=== PATIENT | female | born 1990 | race Caucasian/White ===

== ENCOUNTER 2017-03-14 18:27 | Inpatient (IN) | payer OTHER ==
[~2017-03-14] VITALS: Ht 160 cm; Wt 89.2 kg
--- NOTE | 2017-03-14 19:14 | NUR ---
PT PRESENTS TO THE ED WITH THE COMPLAINT OF BUQ AND RLQ ABDOMINAL PAIN WHICH HAS BEEN CRAMP-LIKE AND INTERMITTENT SINCE 1200 TODAY. PT REPORTS "OVER 10" EPISODES OF VOMITING. PTS MOTHER AT BEDSIDE WITH THE PT. THE ABDOMINAL PAIN EXACERBATED UPON DEEP PALPATION.
--- NOTE | 2017-03-14 19:16 | NUR ---
REPORT GIVEN TO PRUDENCIO Engel RN TO ASSUME CARE FOR THIS PT
--- NOTE | 2017-03-14 19:20 | NUR ---
DR GARCIA AT BEDSIDE FOR MSE
--- NOTE | 2017-03-14 19:35 | NUR ---
PT MEDICATED PER ORDER. PLEASE SEE EMAR.
--- NOTE | 2017-03-14 19:49 | NUR ---
US EXAM IN PROGRESS AT BEDSIDE
[2017-03-14 20:16] LABS: CALCIUM 8.1 mg/dL (8.5-10.1); CARBON DIOXIDE 23.1 mmol/L (21-32); CHLORIDE SERUM 109 mmol/L (98-107); CREATININE SERUM 0.6 mg/dL (0.6-1.0); GFR1 > 60 mL/min; GLUCOSE SERUM 111 mg/dL (74-106); SODIUM SERUM 142 mmol/L (136-145)
--- NOTE | 2017-03-14 20:18 | NUR ---
PT TAKEN TO RADIOLOGY FOR CT EXAM
[2017-03-14 20:21] LABS: ALBUMIN 3.4 g/dL (3.4-5.0); ALKALINE PHOSPHATASE 59 U/L (46-116); ALT/SGPT 19 U/L (14-59); AST/SGOT 11 U/L (15-37); BILIRUBIN TOTAL 0.97 mg/dL (0.20-1.00); LIPASE 142 IU/L (73-393); TOTAL PROTEIN, SERUM 6.8 g/dL (6.4-8.2)
--- NOTE | 2017-03-14 20:31 | NUR ---
PT BACK FROM RADIOLOGY WITH NO INCIDIENCE
[2017-03-14 20:35] LABS: microscopic required? YES; urine erythrocyte 3+ (NEGATIVE)
--- NOTE | 2017-03-14 21:00 | NUR ---
PT AMBULATORY TO RESTROOM WITH STEADY GAIT
--- NOTE | 2017-03-14 21:09 | NUR ---
PT REPORTED PAIN INCREASING. DR GARCIA INFORMED AND NEW ORDERS WERE PLACED. PT MEDICATED PER ORDER WITH FENTANYL. PLEASE SEE EMAR.
--- NOTE | 2017-03-14 22:11 | NUR ---
PT MEDICATED PER ORDER. PLEASE SEE EMAR.
[2017-03-14 22:18] LABS: PLATELET COUNT 228 x10^3mcL (130-400)
[2017-03-14 22:20] LABS: RED CELL DISTRIBUTION WIDTH 14.7 % (11.5-14.5)
--- NOTE | 2017-03-14 22:29 | NUR ---
PT ASLEEP ON GURNEY IN POSITION OF COMFORT. RESPS EVEN AND UNLABORED. WILL CONT TO MONITOR.
[2017-03-14 22:38] LABS: BAND NEUTROPHIL 5 % (0-10); METAMYELOCTE 2 % (0-2); MONOCYTE 3 % (0-7); SEGMENTED NEUTROPHILS 86 % (37-75)
[2017-03-14 22:39] LABS: rbc morphology (normal/abnorm) NORMAL (NORMAL)
[2017-03-14 22:40] LABS: PLATELET MORPHOLOGY FEW LARGE PLATELETS
--- NOTE | 2017-03-14 23:33 | NUR ---
MRSA SWAB OBTAINED AND SENT TO LAB
--- NOTE | 2017-03-15 00:21 | NUR ---
REPORT CALLED TO BRIJESH RAY TO ASSUME CARE OF PT ON TELE
--- NOTE | 2017-03-15 00:31 | NUR ---
RECEIVED PT FROM ED VIA GUERNEY, CAME IN DUE TO ABDOMINAL PAIN, NAUSEA AND VOMITING. AAOX4. NO SOB NOTED, LUNG SOUNDS CTA. DENIES CHEST PAIN/PRESSURE, SINUS TACHYCARDIA ON THE MONITOR, HR AT 128. STATED THAT SHE HAS MILD NAUSEA AND 4/10 CRAMPING ABDOMINAL PAIN. HAD LOOSE STOOL YESTERDAY. IV SITE PATENT AND INTACT. SIDE RAILS UPX2. CALL LIGHT ON REACH. MOTHER AT BEDSIDE. ENDORSED TO PRIMARY NURSE GUILLERMO FOR CONTINUITY OF CARE.
--- NOTE | 2017-03-15 00:32 | NUR ---
PT TRANSFERRED TO TELE
[2017-03-15 00:51] VITALS: BP 115/63
[2017-03-15 00:53] VITALS: Ht 160 cm; Wt 89.2 kg
[2017-03-15 01:00] VITALS: BP 115/63
[2017-03-15 02:10] LABS: FREE T4 2.38 ng/dL (0.76-1.46)
[2017-03-15 02:11] LABS: FREE THYROXINE INDEX 5.3 ug/dL (1.4-4.5)
--- NOTE | 2017-03-15 02:11 | NUR ---
PT. SLEEPING AT THIS TIME. MOTHER REMAINS AT BEDSIDE. IVF INFUSING WELL. CALL LIGHT WITHIN REACH.
[2017-03-15 02:29] LABS: T3 TOTAL 2.28 ng/mL
--- NOTE | 2017-03-15 02:51 | NUR ---
DR. BAEZ ON UNIT. MADE ASSESSMENT/ROUNDS W/ PT. ORDERS FOR ATIVAN AND ZOFRAN MADE. MEDICATIONS GIVEN. WILL MONITOR PT.
[2017-03-15 03:01] LABS: CHOLESTEROL/HDL RATIO 2.7
--- NOTE | 2017-03-15 04:54 | NUR ---
PT. HAS FEVER, 101.4. PRN TYLENOL GIVEN ORDERED. DR. BAEZ ON UNIT, MADE AWARE. COOLING MEASURES STARTED. PT. DENIES ABD. PAIN AT THIS TIME. ALSO STATED THAT HER NAUSEA LEVEL IS MINIMAL AND DOES NOT REQUIRE MEDICATION. WILL CONTINUE TO MONITOR.
[2017-03-15 05:23] VITALS: BP 102/59
--- NOTE | 2017-03-15 06:37 | NUR ---
PT.'S TEMPT. NOW DOWN TO 98.9.
[2017-03-15 06:52] LABS: BASOPHIL % 0.2 % (0-2); PLATELET COUNT 189 x10^3mcL (130-400)
[2017-03-15 07:01] LABS: CALCIUM 7.7 mg/dL (8.5-10.1); CARBON DIOXIDE 22.3 mmol/L (21-32); CHLORIDE SERUM 109 mmol/L (98-107); CREATININE SERUM 0.7 mg/dL (0.6-1.0); GFR1 > 60 mL/min; GLUCOSE SERUM 107 mg/dL (74-106); MAGNESIUM 1.7 mg/dL (1.8-2.4); POTASSIUM SERUM 3.5 mmol/L (3.5-5.1); SODIUM SERUM 141 mmol/L (136-145)
[2017-03-15 07:12] LABS: RED CELL DISTRIBUTION WIDTH 15.4 % (11.5-14.5)
--- NOTE | 2017-03-15 07:15 | NUR ---
RECIEVED REPORT FROM GUILLERMO RAY AT BEDSIDE. PT IS AAOX4 ABLE TO FOLLOW VERBAL COMMANDS. ON TELE # [id number] ST [id number], PT IS ASYMPTOMATIC AT THIS TIME. DENIES CHEST PAIN AND HEART PALPITATIONS. NO EDEMA NOTED. FOUND PT ON RA, NO SIGNS OF SOB OR ACUTE DISTRESS. PT'S LUNG SOUNDS ARE CLEAR. PT DENIES N/V AND ABD PAIN. PT IS AWARE OF NEEDING A STOOL SAMPLE AND VERBALIZE UNDERSTANDING. PT DENIES MANNY AT THIS TIME. NS INFUSING AT 100ML/HR TO LFA. IV SITE WNL. IV DRESSING WAS CHANGED. BED AT LOW AND CALL LIGHT WITHIN REACH.
--- NOTE | 2017-03-15 08:09 | NUR ---
CLEAR ORANGE URINE IS SENT TO LAB FOR TESTS. ANGELIQUE SULLIVAN SENT SPECIMEN TO LAB.
[2017-03-15 09:01] LABS: AMPHETAMINE QUAL UR NONE DETECTED (NEG <=1000)
[2017-03-15 09:12] VITALS: BP 128/72
--- NOTE | 2017-03-15 10:42 | NUR ---
PT ATE 20%OF LIQUID DIET, PT DENIES N/V AT THIS TIME.
[2017-03-15 12:19] VITALS: BP 117/71
[2017-03-15] MEDS ORDERED: ZOF4 PO (14:02)
--- NOTE | 2017-03-15 15:34 | NUR ---
PT IS AAOX4, ABLE TO FOLLOW VERBAL ORDERS. DENIES N/V AND ABD PAIN. PT WILL BE D/C HOME WITH FATHER. DISCHARGE INSTRUCTIONS IS GIVEN AND RX MED IS EXPLAINED TO PT. PT VERBALIZED UNDERSTANDING TO TAKE ZOFRAN WHEN N/V. LFA IV WAS REMOVED AND CATH INTACT, NO BLEEDING NOTED AT IV SITE. PT HAS ALL PERSONAL BELONGINGS. WILL WHEEL PT TO LOBBY BY WHEEL CHAIR.
== END 2017-03-15 15:35 | disposition home or self-care (01) | DRG 391 ==
LOC: ED 18:27 → DU 23:21
PROVIDERS: Emergency Medicine; ADMIT Family Medicine
DX: A08.4 Viral intestinal infection, unspecified (principal); N17.0 Acute kidney failure with tubular necrosis; E05.90 Thyrotoxicosis, unspecified without thyrotoxic crisis or storm; E66.9 Obesity, unspecified; Z68.34 Body mass index [BMI] 34.0-34.9, adult
CPT/HCPCS: 80307; 83880; 84439; 87046; 87046-59; G0480; J2060; J2405; J2765; J3010; J7030; Q0092